=== PATIENT | female | born 2000 | race Caucasian/White ===

== ENCOUNTER → 2022-01-11 11:13 | Observation (INO) | END | disposition home or self-care (01) | LOC: 1NENULAB | PROVIDERS: ADMIT Registered Nurse; ATTEND Registered Nurse ==

== ENCOUNTER 2022-01-11 17:23 | Inpatient (IN) ==
[~2022-01-11 17:23] MED LIST: Famotidine 20 MG/2 ML VIAL IVP PRN; Lidocaine 1% 20 ML MDV INFILT PRN; Metoclopramide 10 MG/2 ML VIAL IVP PRN; Naloxone 0.4 MG/ML INJ IVP PRN; Ondansetron 4 MG/2 ML VIAL IVP PRN; Penicillin G Potassium 5,000,000 UNIT in 0.9 % Sodium Chloride Mini Bag 100 ML IVPB ONE
[2022-01-11] MEDS ORDERED: Ringers Solution, Lactated 1,000 ML IVC SCH (17:30)
[2022-01-11] MEDS ORDERED: *HR* Nalbuphine 10 MG/ML AMPUL IV PRN (17:32)
[2022-01-11 17:53] LABS: Basophils % 0.2 %; Hematocrit 36.4 % (35.3-44.9); Hemoglobin 12.9 g/dL (11.5-15.4); Immature Granulocytes % 0.7 % (0-4); Lymphocytes # 1.7 K/mcL (0.6-4.6); Lymphocytes % 9.1 %; Mean Corpuscular HGB Conc 35.4 g/dL (31.6-35.5); Mean Corpuscular Hemoglobin 32.3 pg (28.0-33.3); Mean Corpuscular Volume 91.2 fL (83.0-100.0); Mean Platelet Volume 10.6 fL (9.4-12.4); Monocytes # 0.5 K/mcL (0.0-1.3); Monocytes % 2.5 %; Platelet Count 217 K/mcL (140-400); Red Blood Count 3.99 M/mcL (3.82-4.97); Red Cell Distribution Width 12.6 % (11.5-14.5); Segmented Neutrophils % 87.5 %; White Blood Count 18.3 K/mcL (4.3-11.1)
[2022-01-11 17:59] LABS: Amphetamine Screen,Urine Negative ng/mL (Cutoff=1000); Barbiturate Screen,Urine Negative ng/mL (Cutoff=200); Benzodiazepines Screen,Urine Negative ng/mL (Cutoff=200); Cannabinoid Screen,Urine Negative ng/mL (Cutoff = 50); Cocaine Screen,Urine Negative ng/mL (Cutoff= 300); Opiate Screen,Urine Negative ng/mL (Cutoff=300); Phencyclidine Screen,Urine Negative ng/mL (Cutoff=25)
[2022-01-11 18:24] LABS: Influenza A PCR Negative (Negative); Influenza B PCR Negative (Negative); Resp. Syncytial Virus PCR Negative (Negative)
[2022-01-11 18:27] LABS: SARS-CoV-2 by PCR (In House) Negative (Negative)
[2022-01-11] MEDS ORDERED: Oxytocin 30 UNIT/503 ML BAG IVC ONE (19:33)
[2022-01-11] MEDS ORDERED: Penicillin G Potassium 2,500,000 UNIT/105 ML MLS IVPB SCH (22:00)
[2022-01-11] MEDS ORDERED: Ibuprofen 600 MG TABLET PO STA (23:48)
[2022-01-12] MEDS ORDERED: OXYTOCIN/RINGERS LACTATE 10 UNIT/166.6 ML BAG IVC ONE ×2 (00:35→02:43)
[2022-01-12] MEDS ORDERED: Measles/Mumps/Rubella Vacc 0.5 ML VIAL SQ PRN ×2 (00:35→02:43)
[2022-01-12] MEDS ORDERED: Ondansetron ODT 4 MG TAB.RAPDIS SL PRN ×2 (00:35→02:43)
[2022-01-12] MEDS ORDERED: Rho Immune Globulin 1,500 UNIT SYRINGE IM PRN ×2 (00:35→02:43)
[2022-01-12] MEDS ORDERED: Lanolin 7 G OINT...G. TP PRN ×2 (00:35→02:43)
[2022-01-12] MEDS ORDERED: Benzocaine/Menthol 56 GM AEROSOL SPRAY TP PRN ×2 (00:35→02:43)
[2022-01-12] MEDS ORDERED: Acetaminophen 325 MG TABLET PO SCH (00:45)
[2022-01-12] MEDS ORDERED: Oxytocin 30 UNIT/503 ML BAG IVC SCH ×2 (00:45→02:43)
[2022-01-12] MEDS ORDERED: *HR* Nalbuphine 10 MG/ML AMPUL IV PRN (02:43)
[2022-01-12] MEDS ORDERED: Metoclopramide 10 MG/2 ML VIAL IVP PRN (02:43)
[2022-01-12] MEDS ORDERED: Naloxone 0.4 MG/ML INJ IVP PRN (02:43)
[2022-01-12] MEDS ORDERED: Famotidine 20 MG/2 ML VIAL IVP PRN (02:43)
[2022-01-12] MEDS ORDERED: Lidocaine 1% 20 ML MDV INFILT PRN (02:43)
[2022-01-12] MEDS ORDERED: Ondansetron 4 MG/2 ML VIAL IVP PRN (02:43)
[2022-01-12] MEDS ORDERED: Ringers Solution, Lactated 1,000 ML IVC SCH (02:43)
[2022-01-12] MEDS ORDERED: Ibuprofen 600 MG TABLET PO SCH (03:35)
[2022-01-12] MEDS ORDERED: Penicillin G Potassium 2,500,000 UNIT/105 ML MLS IVPB SCH (06:00)
[2022-01-12] MEDS: Ibuprofen 600 MG TABLET PO SCH ×4 (07:16→22:26)
[2022-01-12] MEDS: Acetaminophen 325 MG TABLET PO SCH ×3 (07:16→22:25)
[2022-01-12] MEDS ORDERED: Prenatal Vit/FA 1 EACH TABLET PO SCH (09:00)
[2022-01-12] MEDS: Prenatal Vit/FA 1 EACH TABLET PO SCH (11:13)
[2022-01-13 08:00] VITALS: BP 113/70; PULSE 60; TEMP 97.8; O2SAT 99
[2022-01-13] MEDS ORDERED: Lidocaine/EPI 1:100k 1% 20 ML VIAL INFILT ONE (08:25)
[2022-01-13] MEDS ORDERED: Etonogestrel 68 MG IMPLANT IL ONE (08:25)
[2022-01-13] MEDS: Ibuprofen 600 MG TABLET PO SCH ×2 (09:55)
[2022-01-13] MEDS: Prenatal Vit/FA 1 EACH TABLET PO SCH (09:55)
[2022-01-13] MEDS: Acetaminophen 325 MG TABLET PO SCH ×2 (09:55)
== END 2022-01-13 15:29 | disposition home or self-care (01) | DRG 807 ==
LOC: 1NENULAB → 1NENUOBS 01-12 02:18
PROVIDERS: ADMIT Advanced Practice Midwife; ATTEND Advanced Practice Midwife